=== PATIENT | male | born 1970 | race Caucasian/White ===

== ENCOUNTER 2020-12-04 16:48 | Emergency (ER) | payer OTHER ==
[~2020-12-04] VITALS: Ht 165.1 cm; Wt 79.5 kg
[2020-12-04] MEDS ORDERED: IV NORMAL SALINE 1000ML BAG 1,000 ML IV ONE (17:30)
--- NOTE | 2020-12-04 17:31 | PHYS DOC ---
Past Medical History Past Medical History: Other Additional Past Medical Histor: COVID 19 (JUAN J MEDLEY APRN) Past Surgical History: Cholecystectomy (JUAN J MEDLEY APRN) Smoking Status: Former Smoker Alcohol Use: None (JUAN J MEDLEY APRN) General Adult EDM: Chief Complaint: OTHER COMPLAINTS HPI: HPI: Patient is a 50 year old inmate from [facility] presented to the ED today complaining of swelling to the left hard palate that he noted this morning. Patient reports slight difficulty swallowing through the left side. Denies any fever, coughing, congestion. Denies any difficulty breathing. (JUAN J MEDLEY APRN) Review of Systems: Review of Systems: Constitutional: Denies fever or chills. [] Eyes: Denies change in visual acuity. [] HENT: Reports swelling to the left hard palate. Denies nasal congestion or sore throat. [] Respiratory: Denies cough or shortness of breath. [] Cardiovascular: Denies chest pain or edema. [] GI: Denies abdominal pain, nausea, vomiting, bloody stools or diarrhea. [] : Denies dysuria. [] Musculoskeletal: Denies back pain or joint pain. [] Integument: Denies rash. [] Neurologic: Denies headache, focal weakness or sensory changes. [] Psychiatric: Denies depression or anxiety. [] (JUAN J MEDLEY APRN) Heart Score: Risk Factors: Risk Factors: DM, Current or recent (<one month) smoker, HTN, HLP, family history of CAD, obesity. Risk Scores: Score 0 - 3: 2.5% MACE over next 6 weeks - Discharge Home Score 4 - 6: 20.3% MACE over next 6 weeks - Admit for Clinical Observation Score 7 - 10: 72.7% MACE over next 6 weeks - Early Invasive Strategies (JUAN J MEDLEY APRN) Current Medications: Current Medications Medications (Trade) Dose Ordered Sig/Yamileth Start Time Stop Time Status Last Admin Dose Admin Dexamethasone Sodium Phosphate (Decadron) 10 mg 1X ONCE 12/04/20 17:45 12/04/20 17:46 Morphine Sulfate (Morphine Sulfate) 4 mg 1X ONCE 12/04/20 17:45 12/04/20 17:46 Sodium Chloride 1,000 ml @ 1,000 mls/hr 1X ONCE 12/04/20 17:30 12/04/20 18:29 (JUAN J MEDLEY APRN) Allergies: Allergies: Allergies Coded Allergies Type Severity Reaction Last Updated Verified No Known Drug Allergies 12/04/20 No (JUAN J MEDLEY APRN) Physical Exam: PE: Constitutional: Well developed, well nourished, no acute distress, non-toxic appearance. [] HENT: Normocephalic, atraumatic, bilateral external ears normal, oropharynx moist, no oral exudates, nose normal. [] Airways open, mild swelling noted to the left hard palate. Eyes: PERRLA, EOMI, conjunctiva normal, no discharge. [] Neck: Normal range of motion, no tenderness, supple, no stridor. [] Cardiovascular:Heart rate regular rhythm, no murmur [] Lungs & Thorax: Bilateral breath sounds clear to auscultation [] Abdomen: Bowel sounds normal, soft, no tenderness, no masses, no pulsatile masses. [] Skin: Warm, dry, no erythema, no rash. [] Back: No tenderness, no CVA tenderness. [] Extremities: No tenderness, no cyanosis, no clubbing, ROM intact, no edema. [] Neurologic: Alert and oriented X 3, normal motor function, normal sensory functi on, no focal deficits noted. [] Psychologic: Affect normal, judgement normal, mood normal. [] (JUAN J MEDLEY APRN) Current Patient Data: Vital Signs: Vital Signs Date Time Temp Pulse Resp B/P (MAP) Pulse Ox O2 Delivery O2 Flow Rate FiO2 12/04/20 17:05 99.8 105 16 131/62 (85) 97 Room Air 99.8 (JUAN J MEDLEY APRN) EKG: EKG: [] (JUANJ MEDLEY APRN) Radiology/Procedures: Radiology/Procedures: []PROCEDURE: CT MAXILLOFACIAL W/CONTRAST Exam: CT maxillofacial with contrast INDICATION: Left heart palate swelling TECHNIQUE: Sequential axial images through the maxillofacial obtained following the administration of 75 mL of Omni 300 IV contrast. Sagittal and coronal reformatted images were reconstructed from the axial data and reviewed. Comparisons: None FINDINGS: Visualized cranial structures are unremarkable. Globes and intraorbital contents are normal. Visualized portions of the paranasal sinuses and mastoid air cells are well-pneumatized. There is asymmetric thickening of the left posterior oropharynx with a small focal fluid collection measuring approximately 9 mm adjacent to the left patella 19 tonsil. There is extensive edema is noted within the parapharyngeal fat. Cervical vasculature is patent. There are numerous prominent and mildly enlarged bilateral upper cervical lymph nodes. No suspicious osseous lesions or acute fractures. IMPRESSION: Asymmetric thickening at the left palatine tonsil with a small adjacent fluid collection measuring 9 mm concerning for peritonsillar abscess. Close clinical follow-up/repeat tract visualization for resolution is recommended to exclude underlying neoplasm. Exposure: One or more of the following in the visualized dose reduction techniques were utilized for this examination: 1. Automated exposure control 2. Adjustment of the MA and/or KV according to patient size 3. Use of iterative of reconstructive technique Electronically signed by: Petrona Luna MD (12/04/2020 6:24 PM) [facility] DICTATED and SIGNED BY: PETRONA LUNA MD DATE: 12/04/20 [id number] (JUAN J MEDLEY APRN) Course & Med Decision Making: Course & Med Decision Making Pertinent Labs and Imaging studies reviewed. (See chart for details) This is a 50-year-old male patient presented to the ED today complaining of swelling to the left hard palate for 1 day. Vitals on arrival to the ED temperature 99.8, heart rate 105, O2 sats 97% on room air, respirations 16, blood pressure 131/62. Patient was started on the sepsis protocol including IV fluids, antibiotics were ordered. He was also given Decadron. WBC 14.0 with a left shift, CMP with no acute findings. Lactic is normal. CT of the abdomen and pelvic was positive for left peritonsillar abscess. Spoke with [facility] accepted by Dr. [facility] to transport (JUAN J MEDLEY APRN) Course & Med Decision Making *CORRECTION, CT maxillofacial NOT abd/pelvis w/contrast (ROXANN GARCIA DO) Sriram Disclaimer: Dragalice Disclaimer: This electronic medical record was generated, in whole or in part, using a voice recognition dictation system. (JUAN J MEDLEY APRN) Departure Departure Impression: Primary Impression: Peritonsillar abscess Disposition: 05 DC/TRF OTHER TYPE INSTITUTI Condition: STABLE Referrals: UNKNOWN PCP NAME (PCP) JUAN J MEDLEY APRN Dec 04, 2020 17:31 ROXANN GARCIA DO Dec 04, 2020 23:13
[2020-12-04 17:45] LABS: BASO # 0.1 x10^3/uL (0.0-0.2); BASO % 0 % (0-3); EOS % 0 % (0-3); HEMATOCRIT 42.6 % (39.0-53.0); HEMOGLOBIN 14.8 g/dL (13.0-17.5); LYMPH # 0.7 x10^3/uL (1.0-4.8); LYMPH % 5 % (24-48); MEAN CORPUSCULAR HEMOGLOBIN 31 pg (25-35); MEAN CORPUSCULAR HGB CONC 35 g/dL (31-37); MEAN CORPUSCULAR VOLUME 88 fL (79-100); MONO # 0.9 x10^3/uL (0.0-1.1); MONO % 7 % (0-9); NEUT # 12.3 x10^3/uL (1.8-7.7); NEUT % 88 % (31-73); PLATELET COUNT 185 x10^3/uL (140-400); RED BLOOD COUNT 4.82 x10^6/uL (4.30-5.70); RED CELL DISTRIBUTION WIDTH 12.7 % (11.5-14.5)
[2020-12-04] MEDS ORDERED: DEXAMETHASONE SOD PHOS 20 MG/5 ML VIAL. IV ONE (17:45)
[2020-12-04] MEDS ORDERED: MORPHINE SULFATE 4 MG/ML VIAL. IV ONE (17:45)
[2020-12-04 17:54] LABS: CALCIUM 8.6 mg/dL (8.5-10.1); GFR 79.1; POTASSIUM 3.7 mmol/L (3.5-5.1)
[2020-12-04 17:59] LABS: % LYMPHS 4 % (24-48); % MONOS 3 % (0-10); % SEGS 93 % (35-66); ALBUMIN 3.8 g/dL (3.4-5.0); PLT ESTIMATE ADEQUATE (ADEQUATE); TOTAL BILIRUBIN 0.7 mg/dL (0.2-1.0); TOTAL PROTEIN 7.6 g/dL (6.4-8.2)
[2020-12-04] MEDS ORDERED: IOHEXOL 300 MG/ML 100ML VIAL. IV ONE (18:15)
[2020-12-04] MEDS ORDERED: CONTRAST GIVEN. MC PRN (18:15)
--- NOTE | 2020-12-04 18:27 | RAD ---
Exam: CT maxillofacial with contrast INDICATION: Left heart palate swelling TECHNIQUE: Sequential axial images through the maxillofacial obtained following the administration of 75 mL of Omni 300 IV contrast. Sagittal and coronal reformatted images were reconstructed from the a xial data and reviewed. Comparisons: None FINDINGS: Visualized cranial structures are unremarkable. Globes and intraorbital contents are normal. Visualiz ed portions of the paranasal sinuses and mastoid air cells are well-pneumatized. There is asymmetric thickening of the left posterior oropharynx with a small focal fluid collection m easuring approximately 9 mm adjacent to the left patella 19 tonsil. There is extensive edema is noted within the parapharyngeal fat. Cervical vasculature is patent. There are numerous prominent and mildly enlarged bilateral upper cervical lymph nodes. No suspicious osseous lesions or acute fractures. IMPRESSION: Asymmetric thickening at the left palatine tonsil with a small adjacent fluid collection measuring 9 mm concerning for peritonsillar abscess. Close clinical follow-up/repeat tract visualization for reso lution is recommended to exclude underlying neoplasm. Exposure: One or more of the following in the visualized dose reduction techniques were utilized for this examination: 1. Automated exposure control 2. Adjustment of the MA and/or KV according to patient size 3. Use of iterative of reconstructive technique Electronically signed by: Petrona Aguirre MD (12/04/2020 6:24 PM) [facility]
[2020-12-04] MEDS ORDERED: PIPERACILLIN/TAZOBACTAM 3.375 GM in IV NORMAL SALINE 50ML 50 ML IV ONE (18:30)
[2020-12-04] MEDS ORDERED: VANCOMYCIN PER PHARMACY MC ONE (18:30)
[2020-12-04] MEDS ORDERED: VANCOMYCIN 2 GM in IV NORMAL SALINE 500ML BAG 500 ML IV ONE (18:45)
[2020-12-04] MEDS ORDERED: MORPHINE SULFATE 10 MG/ML VIAL. IV ONE (19:30)
[2020-12-04] MEDS ORDERED: LIDOCAINE 2% VISCOUS 15 ML SOLUTION. SWSW ONE (19:30)
[2020-12-04 21:45] VITALS: BP 111/61
== END 2020-12-04 22:05 | disposition short-term general hospital (02) ==
LOC: ER 16:48 → EEVIPCON 16:48 → ER 22:05
DX: J36 Peritonsillar abscess (principal); Z20.822 Contact with and (suspected) exposure to COVID-19; Z87.891 Personal history of nicotine dependence
CPT/HCPCS: 36415; 70487; 80053; 83605; 84145; 85007; 85025; 87040; 87426; 96361; 96365; 96366; 96368; 96375; 99285; C9803; J1100; J2270; J2543; J3370; J7030; J7040; Q9967; U0003